=== PATIENT | male | born 1935 | race Caucasian/White ===

== ENCOUNTER 2022-05-06 14:16 | Emergency (ER) | payer MEDICARE ==
[~2022-05-06] VITALS: Ht 177 cm; Wt 100.0 kg
[2022-05-06 14:53] LABS: EOSINOPHILS % (AUTO) 0 % (0-10); HEMOGLOBIN 13.1 g/dL (13.3-17.7); LYMPHOCYTES % (AUTO) 7 % (12-44)
[2022-05-06 14:55] LABS: BASOPHILS # (AUTO) 0.1 10^3/uL (0.0-0.1); BASOPHILS % (AUTO) 1 % (0-10); HEMATOCRIT 40 % (40-54); LYMPHOCYTES # (AUTO) 0.6 10^3/uL (1.0-4.0); MEAN CORPUSCULAR HEMOGLOBIN 29 pg (25-34); MEAN CORPUSCULAR HGB CONC 33 g/dL (32-36); MEAN CORPUSCULAR VOLUME 88 fL (80-99); MONOCYTES # (AUTO) 0.7 10^3/uL (0.0-1.0); MONOCYTES % (AUTO) 8 % (0-12); NEUTROPHILS # (AUTO) 7.2 10^3/uL (1.8-7.8); NEUTROPHILS % (AUTO) 84 % (42-75); PLATELET COUNT 112 10^3/uL (130-400); WHITE BLOOD COUNT 8.6 10^3/uL (4.3-11.0)
[2022-05-06 14:59] LABS: BILIRUBIN,URINE NEGATIVE (NEGATIVE); CLARITY,URINE CLEAR; COLOR,URINE YELLOW; GLUCOSE, URINE (UA) NEGATIVE (NEGATIVE); KETONES,URINE TRACE (NEGATIVE); LEUKOCYTE ESTERASE ,URINE NEGATIVE (NEGATIVE); NITRITE,URINE NEGATIVE (NEGATIVE); PH,URINE 5.5 (5-9); PROTEIN,URINE NEGATIVE (NEGATIVE)
[2022-05-06 15:00] LABS: ALBUMIN 3.8 GM/DL (3.2-4.5); POTASSIUM 4.2 MMOL/L (3.6-5.0)
[2022-05-06 15:01] LABS: CALCIUM 8.9 MG/DL (8.5-10.1)
[2022-05-06 15:03] LABS: TOTAL PROTEIN 7.1 GM/DL (6.4-8.2)
[2022-05-06 15:05] LABS: BILIRUBIN,TOTAL 0.8 MG/DL (0.1-1.0)
[2022-05-06 15:06] LABS: CREATININE SERUM 1.18 MG/DL (0.60-1.30)
[2022-05-06 15:19] LABS: AMORPHOUS SEDIMENT,UR FEW AMOR URATES /LPF; BACTERIA,URINE NEGATIVE /HPF; WBC,URINE RARE /HPF
[2022-05-06 15:25] LABS: LYMPHOCYTES % (MANUAL) 8 %; MONOCYTES % (MANUAL) 6 %; NEUTROPHILS % (MANUAL) 86 %; RBC MORPH NORMAL
[2022-05-06 15:56] VITALS: BP_SYST 132; BP_SYST 143; BP_SYST 145; BP_DIAS 74; BP_DIAS 75; BP_DIAS 82
--- NOTE | 2022-05-06 17:39 | ED General ---
General Chief Complaint: Dizziness/Syncope Stated Complaint: WEAKNESS Nursing Triage Note: PT AMB TO RM 6 PT CO OF DIZZINESS AND WEAKNESS FOR APPROX 3 DAYS. PT STATES GAIT WAS UNSTEADY D/T WEAKNESS. PT [place]. 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 STATES DID NOT DO ANY LAB WORK OR EKG. PT TAKES NO MEDICATIONS ON REGULAR BASIS. Source of Information: Patient, Family Exam Limitations: No Limitations History of Present Illness Date Seen by Provider: May 06, 2022 Time Seen by Provider: 14:27 Initial Comments This 86-year-old gentleman presents to the emergency room with complaints of feeling generally weak and having lightheadedness upon rising and getting up in the night. He has had some mild cough in recent days. He has noted an increase in these symptoms over about 3 days. He denies any nausea, vomiting, or diarrhea, but he has noted a decrease in appetite. He has been afebrile. Vital signs are unremarkable on assessment. He reports very little past health history. He takes no medications and reports eczema as his only health problem. He sees Jordan Kathleen in [place] in [place]. His dizziness prompted a Holter monitor which he is presently wearing. He is vaccinated against COVID-19. Allergies and Home Medications Allergies Coded Allergies: No Known Drug Allergies (Unverified , 05/06/22) Patient Home Medication List Home Medication List Reviewed: Yes Review of Systems Review of Systems Constitutional: see HPI EENTM: no symptoms reported Respiratory: see HPI Cardiovascular: see HPI Gastrointestinal: see HPI Genitourinary: no symptoms reported Musculoskeletal: no symptoms reported Skin: no symptoms reported Psychiatric/Neurological: No Symptoms Reported Hematologic/Lymphatic: No Symptoms Reported Immunological/Allergic: no symptoms reported Past Zmkhpdb-Hfqrio-Mvhyml Hx Patient Social History Tobacco Use?: No Substance use?: No Alcohol Use?: Yes Alcohol Frequency: Rarely Pt feels they are or have been: No Immunizations Up To Date First/Initial COVID19 Vaccinat: 2020 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 oz. 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 Norm as Tested Skin: Normal Color, Warm/Dry Progress/Results/Core Measures Suspected Sepsis SIRS Temperature: Pulse: 92 Respiratory Rate: 21 Laboratory Tests 05/06/22 14:45: White Blood Count 8.6 Blood Pressure 132 /74 Mean: 93 Laboratory Tests 05/06/22 14:45: Creatinine 1.18, Platelet Count 112L, Total Bilirubin 0.8 Results/Orders Lab Results Laboratory Tests Test 05/06/22 14:45 05/06/22 14:54 05/06/22 15:55 Range/Units White Blood Count 8.6 4.3-11.0 10^3/uL Red Blood Count 4.56 4.30-5.52 10^6/uL Hemoglobin 13.1 L 13.3-17.7 g/dL Hematocrit 40 40-54 % Mean Corpuscular Volume 88 80-99 fL Mean Corpuscular Hemoglobin 29 25-34 pg Mean Corpuscular Hemoglobin Concent 33 32-36 g/dL Red Cell Distribution Width 14.4 10.0-14.5 % Platelet Count 112 L 130-400 10^3/uL Mean Platelet Volume 13.0 H 9.0-12.2 fL Immature Granulocyte % (Auto) 0 % Neutrophils (%) (Auto) 84 H 42-75 % Lymphocytes (%) (Auto) 7 L 12-44 % Monocytes (%) (Auto) 8 0-12 % Eosinophils (%) (Auto) 0 0-10 % Basophils (%) (Auto) 1 0-10 % Neutrophils # (Auto) 7.2 1.8-7.8 10^3/uL Lymphocytes # (Auto) 0.6 L 1.0-4.0 10^3/uL Monocytes # (Auto) 0.7 0.0-1.0 10^3/uL Eosinophils # (Auto) 0.0 0.0-0.3 10^3/uL Basophils # (Auto) 0.1 0.0-0.1 10^3/uL Immature Granulocyte # (Auto) 0.0 0.0-0.1 10^3/uL Neutrophils % (Manual) 86 % Lymphocytes % (Manual) 8 % Monocytes % (Manual) 6 % Percent Immature Platelet Fraction 15.9 H 0.0-7.6 % Blood Morphology Comment NORMAL Sodium Level 132 L 135-145 MMOL/L Potassium Level 4.2 3.6-5.0 MMOL/L Chloride Level 100 98-107 MMOL/L Carbon Dioxide Level 23 21-32 MMOL/L Anion Gap 9 5-14 MMOL/L Blood Urea Nitrogen 20 H 7-18 MG/DL Creatinine 1.18 0.60-1.30 MG/DL Estimat Glomerular Filtration Rate 60 BUN/Creatinine Ratio 17 Glucose Level 124 H 70-105 MG/DL Calcium Level 8.9 8.5-10.1 MG/DL Corrected Calcium 9.1 8.5-10.1 MG/DL Magnesium Level 2.0 1.6-2.4 MG/DL Total Bilirubin 0.8 0.1-1.0 MG/DL Aspartate Amino Transf (AST/SGOT) 18 5-34 U/L Alanine Aminotransferase (ALT/SGPT) 13 0-55 U/L Alkaline Phosphatase 70 40-136 U/L Troponin I < 0.028 <0.028 NG/ML Total Protein 7.1 6.4-8.2 GM/DL Albumin 3.8 3.2-4.5 GM/DL Urine Color YELLOW Urine Clarity CLEAR Urine pH 5.5 5-9 Urine Specific [place] >=1.030 1.016-1.022 Urine Protein NEGATIVE NEGATIVE Urine Glucose (UA) NEGATIVE NEGATIVE Urine Ketones TRACE H NEGATIVE Urine Nitrite NEGATIVE NEGATIVE Urine Bilirubin NEGATIVE NEGATIVE Urine Urobilinogen 0.2 < = 1.0 MG/DL Urine Leukocyte Esterase NEGATIVE NEGATIVE Urine RBC (Auto) NEGATIVE NEGATIVE Urine RBC NONE /HPF Urine WBC RARE /HPF Urine Crystals PRESENT H /LPF Urine Amorphous Sediment FEW AD URATES H /LPF Urine Bacteria NEGATIVE /HPF Urine Casts NONE /LPF Urine Mucus MODERATE H /LPF Urine Culture Indicated NO Influenza Type A (RT-PCR) Not Detected Not Detecte Influenza Type B (RT-PCR) Not Detected Not Detecte SARS-CoV-2 RNA (RT-PCR) Detected H Not Detecte My Orders Orders - ZACH CRUZ MD Ed Iv/Invasive Line Start (05/06/22 14:27) Cbc With Automated Diff (05/06/22 14:27) Comprehensive Metabolic Panel (05/06/22 14:27) Magnesium (05/06/22 14:27) Ua Culture If Indicated (05/06/22 14:27) Ekg Tracing (05/06/22 14:55) Monitor-Rhythm Ecg Trace Only (05/06/22 14:55) Troponin I Giorgi (05/06/22 14:55) Manual Differential (05/06/22 14:45) Covid 19 Inhouse Test (05/06/22 15:47) Influenza A And B By Pcr (05/06/22 15:47) Orthostatic Vital Signs (Adult (05/06/22 15:47) Rx-Nirmatrelvir/Ritonavir(Eua) (Rx-Paxlo (05/06/22 21:00) Rx-Nirmatrelvir/Ritonavir(Eua) (Rx-Paxlo (05/06/22 17:52) Vital Signs/I&O 05/06/22 05/06/22 05/06/22 14:35 15:56 17:58 Temp 36.1 Pulse 64 111 48 97 92 Resp 21 12 B/P (MAP) 145/91 (109) 143/82 (102) 163/85 145/75 (98) 132/74 (93) Pulse Ox 94 99 Capillary Refill : Less Than 3 Seconds Blood Pressure Mean: 93 Progress Note : Progress Note Work-up was grossly unremarkable except for positive COVID-19 test. Patient's vital signs remained stable. Orthostatic blood pressures were unremarkable. Treatment options were reviewed with patient and he elected to use Paxlovid which was dispensed in the ER. He did develop runs of frequent PVCs and at times bigeminy. I discussed this scenario with Dr. Mascorro. Neither Dr. Mascorro nor I believe this warrants admission. Patient was instructed to follow-up closely in the cardiology clinic. See discharge instructions for further discussion. ECG Initial ECG Impression Date: May 06, 2022 Initial ECG Impression Time: 15:03 Initial ECG Rate: 58 Initial ECG Rhythm: Normal Sinus Initial ECG Intervals: Normal Initial ECG Impression: Normal Comment Normal sinus rhythm with no ST elevation or depression. No abnormal intervals. Possible mild LVH. Departure Impression Primary Impression: COVID-19 Additional Impression: Bigeminy Disposition: 01 HOME, SELF-CARE Condition: Stable Departure-Patient Inst. Decision time for Depature: 17:38 Referrals: JOAN STACK MD [facility]/AGUILAR MILIAN,CHARLES GARCIA,ALLEGRA ARANDA,NED PRADHAN,CHARLES ESPINOZA,DURAN MASCORRO,XAVIER CEJA,LOCAL PHYSICIAN (PCP) Primary Care Physician MEHNAZ MONTIEL,PAUL Weller MD Patient Instructions: COVID-19 ED, Nirmatrelvir and Ritonavir FDA Fact Sheet, Ventricular Premature Beats Add. Discharge Instructions: Complete the Paxlovid antiviral pills for treatment of COVID-19. Complete the entire course of 5 days even if you are feeling better. Please read the fact sheet for Paxlovid attached. Drink plenty of clear liquids to stay well-hydrated and try to eat a well- balanced diet. You may take Tylenol (acetaminophen) up to 1000 mg every 6 hours as needed for pain or fever. Add ibuprofen 400 mg 3 times a day as needed for additional pain or fever relief. Avoid remaining sedentary for prolonged periods of time. Get up and move about the house frequently. Change positions in bed frequently. This will help maintain your breathing and oxygen saturations. Check your oxygen saturations a couple of times a day or at times you are feeling more short of breath. If you have multiple measurements less than 92% or any measurement under 90%, please return to the ER. Also return to the ER if you are having worsening symptoms overall despite treatment. You have frequent premature beats in your heart rhythm. Please follow-up with Dr. Mascorro or the senior financial reporting analyst of your choice for further cardiac evaluation. See contact information below. Also provided is a list of local physicians you may choose from to establish care with a primary care physician. All discharge instructions reviewed with patient and/or family. Voiced understanding. Copy Copies To 1: XAVIER MASCORRO MD, JOSHUA T MD May 06, 2022 17:38
[2022-05-06] MEDS ORDERED: RX-NIRMATRELVIR/RITONAVIR (PAXLOVID) #30 TABS PO ONE (17:52)
[2022-05-06 17:58] VITALS: BP 163/85
[2022-05-06] MEDS ORDERED: RX-NIRMATRELVIR/RITONAVIR (PAXLOVID) #30 TABS PO SCH (21:00)
== END 2022-05-06 17:57 | disposition home or self-care (01) ==
LOC: ER 14:19
DX: U07.1 COVID-19 (principal); R00.8 Other abnormalities of heart beat; Z28.310 Unvaccinated for COVID-19
CPT/HCPCS: 36415; 80053; 81000; 83735; 84484; 85007; 85027; 87636; 93005; 93041

== ENCOUNTER 2022-05-16 11:11 | Emergency (ER) | payer MEDICARE ==
[~2022-05-16] VITALS: Ht 177 cm; Wt 99.7 kg
[2022-05-16 11:53] VITALS: BP_SYST 108; BP_SYST 120; BP_SYST 130; BP_DIAS 59; BP_DIAS 76
[2022-05-16 12:19] LABS: BASOPHILS % (AUTO) 0 % (0-10); EOSINOPHILS # (AUTO) 0.1 10^3/uL (0.0-0.3); EOSINOPHILS % (AUTO) 1 % (0-10); HEMATOCRIT 45 % (40-54); HEMOGLOBIN 14.6 g/dL (13.3-17.7); LYMPHOCYTES # (AUTO) 1.7 10^3/uL (1.0-4.0); LYMPHOCYTES % (AUTO) 17 % (12-44); MEAN CORPUSCULAR HEMOGLOBIN 29 pg (25-34); MEAN CORPUSCULAR HGB CONC 33 g/dL (32-36); MEAN CORPUSCULAR VOLUME 88 fL (80-99); MEAN PLATELET VOLUME 12.9 fL (9.0-12.2); MONOCYTES % (AUTO) 10 % (0-12); NEUTROPHILS # (AUTO) 7.1 10^3/uL (1.8-7.8); NEUTROPHILS % (AUTO) 71 % (42-75); PLATELET COUNT 159 10^3/uL (130-400); WHITE BLOOD COUNT 9.9 10^3/uL (4.3-11.0)
[2022-05-16 12:21] LABS: POTASSIUM 4.7 MMOL/L (3.6-5.0)
[2022-05-16 12:22] LABS: CALCIUM 9.1 MG/DL (8.5-10.1)
[2022-05-16 12:26] LABS: CREATININE SERUM 1.25 MG/DL (0.60-1.30)
--- NOTE | 2022-05-16 12:27 | ED General ---
General Chief Complaint: Dizziness/Syncope Stated Complaint: DIZZINESS,COVID + 05/06 Nursing Triage Note: PT PRESENTS TO ED VIA POV FROM HOME WITH COMPLAINTS OF DIZZINESS EPISODES FOR A WHILE. PT STATES HE HAD AN EPISODE STARTING THIS AM. PT STATES HE HAS AN APPOINTMENT ON 05/[address] GEE REGARDING AN ARRYTHMIA AND THE DIZZINESS. Source of Information: Patient, Family, Old Records Exam Limitations: No Limitations History of Present Illness Date Seen by Provider: May 16, 2022 Time Seen by Provider: 11:40 Initial Comments This 86-year-old gentleman presents to the emergency room with complaints of lightheadedness, particularly upon standing. He has been having these symptoms for weeks to months but they worsened after he was diagnosed with COVID-19 on May 06. He was seen in the ER on that day and was treated with Paxlovid. During that visit he was also noted to have frequent PVCs and runs of bigeminy. Outpatient cardiology appointment was recommended. He has a follow-up appointment with Dr. Gee on May 23. Patient is still able to be active. He denies any shortness of breath, palpitations, or chest pain. He has not had any syncope as of yet. He has had very little health care in the past and does not routinely see a doctor. He did have a Holter monitor ordered by Jordan Kathleen in [place]. I do not have access to those results. His notes that his symptoms seem to be most prominent upon standing. He feels like he has otherwise recovered from his COVID-19 infection. Allergies and Home Medications Allergies Coded Allergies: No Known Drug Allergies (Unverified , 05/06/22) Patient Home Medication List Home Medication List Reviewed: Yes Review of Systems Review of Systems Constitutional: no symptoms reported EENTM: no symptoms reported Respiratory: no symptoms reported Cardiovascular: see HPI Gastrointestinal: no symptoms reported Genitourinary: no symptoms reported Musculoskeletal: no symptoms reported Skin: no symptoms reported Psychiatric/Neurological: No Symptoms Reported Hematologic/Lymphatic: No Symptoms Reported Past Gzkyyfn-Bqthlh-Puxaue Hx Patient Social History Tobacco Use?: No Substance use?: No Alcohol Use?: No Immunizations Up To Date First/Initial COVID19 Vaccinat: 2020 Second COVID19 Vaccination Alexandre: 2020 Third COVID19 Vaccination Date: 2020 Past Medical History Surgeries: No Respiratory: Yes (COVID-19, April 2022) Cardiac: Yes Palpitations (PVCs, bigeminy) Neurological: No Reproductive Disorders: No Genitourinary: No Gastrointestinal: No Musculoskeletal: No Endocrine: No HEENT: No Cancer: No Psychosocial: No Integumentary: Yes Eczema Physical Exam Vital Signs Vital Signs - First Documented 05/16/22 11:23 Temp 35.7 Pulse 59 Resp 16 B/P (MAP) 126/78 (94) Pulse Ox 97 Capillary Refill : Less Than 3 Seconds Height, Weight, BMI Height: '" Weight: lbs. oz. kg; 31.00 BMI Method: General Appearance: No Apparent Distress, WD/WN HEENT: PERRL/EOMI, Normal ENT Inspection, Other (Oropharynx somewhat dry) Neck: Normal Inspection; No Carotid Bruit, No JVD Respiratory: Lungs Clear, Normal Breath Sounds, No Accessory Muscle Use Cardiovascular: Regular Rate, Rhythm, No Edema, No Murmur, Normal Peripheral Pulses, Other (Occasional PVC on the monitor) Gastrointestinal: Normal Bowel Sounds, Non Tender, Soft Extremity: Normal Inspection, Non Tender, No Calf Tenderness, No Pedal Edema Neurologic/Psychiatric: Alert, Oriented x3, No Motor/Sensory Deficits, Normal Mood/Affect, corsetier II-XII Norm as Tested Skin: Normal Color, Warm/Dry Progress/Results/Core Measures Suspected Sepsis SIRS Temperature: Pulse: 66 Respiratory Rate: 16 Laboratory Tests 05/16/22 11:18: White Blood Count 9.9 Blood Pressure 108 /76 Mean: 87 Laboratory Tests 05/16/22 11:18: Platelet Count 159 05/16/22 11:28: Creatinine 1.25 Results/Orders Lab Results Laboratory Tests Test 05/16/22 11:18 05/16/22 11:28 Range/Units White Blood Count 9.9 4.3-11.0 10^3/uL Red Blood Count 5.08 4.30-5.52 10^6/uL Hemoglobin 14.6 13.3-17.7 g/dL Hematocrit 45 40-54 % Mean Corpuscular Volume 88 80-99 fL Mean Corpuscular Hemoglobin 29 25-34 pg Mean Corpuscular Hemoglobin Concent 33 32-36 g/dL Red Cell Distribution Width 13.9 10.0-14.5 % Platelet Count 159 130-400 10^3/uL Mean Platelet Volume 12.9 H 9.0-12.2 fL Immature Granulocyte % (Auto) 1 % Neutrophils (%) (Auto) 71 42-75 % Lymphocytes (%) (Auto) 17 12-44 % Monocytes (%) (Auto) 10 0-12 % Eosinophils (%) (Auto) 1 0-10 % Basophils (%) (Auto) 0 0-10 % Neutrophils # (Auto) 7.1 1.8-7.8 10^3/uL Lymphocytes # (Auto) 1.7 1.0-4.0 10^3/uL Monocytes # (Auto) 1.0 0.0-1.0 10^3/uL Eosinophils # (Auto) 0.1 0.0-0.3 10^3/uL Basophils # (Auto) 0.0 0.0-0.1 10^3/uL Immature Granulocyte # (Auto) 0.1 0.0-0.1 10^3/uL Sodium Level 135 135-145 MMOL/L Potassium Level 4.7 3.6-5.0 MMOL/L Chloride Level 104 98-107 MMOL/L Carbon Dioxide Level 21 21-32 MMOL/L Anion Gap 10 5-14 MMOL/L Blood Urea Nitrogen 20 H 7-18 MG/DL Creatinine 1.25 0.60-1.30 MG/DL Estimat Glomerular Filtration Rate 56 BUN/Creatinine Ratio 16 Glucose Level 100 70-105 MG/DL Calcium Level 9.1 8.5-10.1 MG/DL Magnesium Level 2.2 1.6-2.4 MG/DL B-Type Natriuretic Peptide 96.4 <100.0 PG/ML TSH [place] Testing 1.90 0.35-4.94 UIU/ML My Orders Orders - ZACH CRUZ MD Ekg Tracing (05/16/22 11:25) Ed Iv/Invasive Line Start (05/16/22 11:40) Monitor-Rhythm Ecg Trace Only (05/16/22 11:40) Orthostatic Vital Signs (Adult (05/16/22 11:40) Basic Metabolic Panel (05/16/22 11:40) Cbc With Automated Diff (05/16/22 11:40) Bnp Giorgi (05/16/22 11:43) Magnesium (05/16/22 11:43) Thyroid Analyzer (05/16/22 11:43) Us Carotid Ryan Complete [id number] (05/16/22 11:47) Lactated Ringers (Lr 1000 Ml Iv Solution (05/16/22 12:30) Medications Given in ED Current Medications Medications Dose Ordered Sig/Wade Route Start Time Stop Time Status Last Admin Dose Admin Lactated Ringer's 1,000 ml @ 0 mls/hr Q0M ONCE IV 05/16/22 12:30 05/16/22 12:31 DC 05/16/22 12:52 0 MLS/HR Vital Signs/I&O 05/16/22 05/16/22 05/16/22 11:23 11:53 14:34 Temp 35.7 Pulse 59 59 63 50 66 Resp 16 18 B/P (MAP) 126/78 (94) 130/76 (94) 146/109 120/59 (79) 108/76 (87) Pulse Ox 97 97 Capillary Refill : Less Than 3 Seconds Blood Pressure Mean: 87 Progress Note : Progress Note Patient had intermittent PVCs and occasional bigeminy. Work-up was relatively unremarkable. He did feel notably improved after receiving IV fluids. Orthostatic blood pressures were marginal for orthostatic hypotension. Carotid ultrasound was obtained and was negative for stenosis. I discussed the case with Dr. Gee. He did not advise any medication treatment at this time. Patient is to keep his appointment with Dr. Gee next week. ECG Initial ECG Impression Date: May 16, 2022 Initial ECG Impression Time: 11:31 Initial ECG Rate: 58 Initial ECG Rhythm: Normal Sinus Initial ECG Intervals: Normal Initial ECG Impression: Normal Comment Normal sinus rhythm with no ST elevation or depression. No abnormal intervals or axis deviation Diagnostic Imaging Diagonstic Imaging: Ultrasound Plain Films/CT/US/NM/MRI: leg Departure Impression Primary Impression: Bigeminy Additional Impression: Dizziness Disposition: 01 HOME, SELF-CARE Condition: Improved Departure-Patient Inst. Decision time for Depature: 14:10 Referrals: NO,LOCAL PHYSICIAN (PCP/Family) Primary Care Physician Patient Instructions: Ventricular Premature Beats Add. Discharge Instructions: Drink plenty of clear liquids to stay well-hydrated, especially while it is hot and humid. Monitor your urine output. You should be urinating often with clear to light yellow urine. If you are not urinating very often or your urine is dark, you need to drink more fluids. Keep your appointment with Dr. Gee next week. If you are feeling lightheaded, please sit or lie down and drink some fluids. Avoid excessive stimulants such as caffeine. Return to the emergency room if symptoms are worsening or if you develop additional symptoms such as shortness of breath, chest pain, fever, etc. All discharge instructions reviewed with patient and/or family. Voiced understanding. Copy Copies To 1: PATY GEE JR, MD BRUEGGEMANN, JOSHUA T MD May 16, 2022 12:27
[2022-05-16 12:28] LABS: MAGNESIUM 2.2 MG/DL (1.6-2.4)
[2022-05-16] MEDS ORDERED: LACTATED RINGERS 1,000 ML IV ONE (12:30)
[2022-05-16 13:04] LABS: TSH (THYROID ANALYZER) 1.9 UIU/ML (0.35-4.94)
--- NOTE | 2022-05-16 13:37 | Diagnostic Imaging Report ---
PROCEDURE: US carotid duplex, bilateral. TECHNIQUE: Multiple real-time grayscale images were obtained over the carotid arteries in various projections, bilaterally. Additional spectral analysis and color Doppler duplex images were also obtained. INDICATION: Dizziness. There is mild plaque bilaterally. Velocities are normal bilaterally. No velocity elevation or stenosis is identified. Both vertebral arteries demonstrate antegrade flow. IMPRESSION: No evidence of a hemodynamically significant stenosis. Parameters based on the consensus panel [place]-Scale and Doppler ultrasound criteria published September 2003, Radiology, Volume 229. DOPPLER (peak systolic velocity M/S Right Left CCA .69 .73 ICA Proximal .43 .48 ICA Mid .47 .38 ICA Distal .43 .41 RATIO .69 .67 ECA .54 .68 VERT .65 .39 Dictated by: Dictated on workstation # [id number]
[2022-05-16 14:34] VITALS: BP 146/109
== END 2022-05-16 14:34 | disposition home or self-care (01) ==
LOC: EDUNIT# 11:11 → ER 11:13
DX: R42 Dizziness and giddiness (principal); R00.8 Other abnormalities of heart beat; Z86.16 Personal history of COVID-19
CPT/HCPCS: 36415; 80048; 83735; 83880; 84443; 85025; 93005; 93041; 93880

== ENCOUNTER 2022-06-04 09:46 | Outpatient (CLI) | payer MEDICARE | END 2022-06-04 10:10 | LOC: SLEEP 09:46 | PROVIDERS: ATTEND Internal Medicine Cardiovascular Disease | DX: G47.33 Obstructive sleep apnea (adult) (pediatric) (principal) | CPT/HCPCS: G0399 ==

== ENCOUNTER → 2022-06-05 | Outpatient (CLI) | payer MEDICARE ==
[~2022-06-05] MED LIST: REGADENOSON 0.4 MG/5 ML SYR (LEXISCAN) IV ONE
[2022-06-05] MEDS: CATHETER FLUSH 10 ML SYR IVP PRN ×2 (11:36→12:43)
[2022-06-05 12:41] VITALS: BP 198/90
== END ==
LOC: CARD 09:55
PROVIDERS: ATTEND Internal Medicine Cardiovascular Disease
DX: I08.0 Rheumatic disorders of both mitral and aortic valves (principal)
CPT/HCPCS: 78452; 93017; 93306; A9502

== ENCOUNTER → 2022-06-24 | Outpatient (CLI) | payer MEDICARE | LOC: CARD 11:59 | PROVIDERS: ATTEND Internal Medicine Cardiovascular Disease | DX: I49.3 Ventricular premature depolarization (principal) | CPT/HCPCS: 93225; 93226 ==

== ENCOUNTER → 2022-08-25 | Outpatient (CLI) | payer MEDICARE | LOC: CARD 12:57 | PROVIDERS: ATTEND Internal Medicine Cardiovascular Disease | DX: I49.3 Ventricular premature depolarization (principal) | CPT/HCPCS: 93225; 93226 ==

== ENCOUNTER → 2023-08-12 | Outpatient (CLI) | payer MEDICARE | LOC: CANPRECLI → CARD 09:05 | PROVIDERS: ATTEND Internal Medicine Cardiovascular Disease | DX: I11.9 Hypertensive heart disease without heart failure (principal); I35.1 Nonrheumatic aortic (valve) insufficiency | CPT/HCPCS: 93320 ==